=== PATIENT | female | born 1995 | race Caucasian/White ===

== ENCOUNTER 2017-07-30 11:22 | Emergency (ER) | payer MEDICAID, OTHER ==
[~2017-07-30 11:22] MED LIST: CIPR500T4 PO; CLON-352 PO; CONC18TA OR; FLUO-1 PO; FLUO20SO3 PO; METH18 PO; PROZ20CA11 PO; TYLE3 PO; Z.0.BCPILL PO
[2017-07-30] MEDS ORDERED: ZITHTAB PO (12:43)
--- NOTE | 2017-07-30 12:43 | PD ---
HPI Chief Complaint Patient complains of abdominal cramping developed after the onset of upper respiratory sinus congestion has been going on for 2 weeks Date Seen: Jul 30, 2017 Time Seen: 12:35 Travel History International Travel<30 Days: No Contact w/Intl Traveler<30Days: No Known Affected Area: No History of Present Illness HPI Patient is 22-year-old white female at 18 weeks goes to [facility] for care and presents complaining of abdominal pain for the last couple of days and a sinus congestion infection for the last 2 weeks. She denies leakage of fluid or vaginal bleeding. Denies urinary symptoms. heart tones in 140s. Patient is taking Tylenol for pain but does not use anything for sinus care Weeks Gestation: 18 Para: 0 : 3 Last Menstrual Period: Jul 30, 2017 Miscarriage: 2 History Obstetric History Obstetric History 2 early losses Social History Alcohol Use: No Tobacco Use: No Substance Abuse: No Allergies-Medications (Allergen,Severity, Reaction): Coded Allergies: amoxicillin (Unverified Allergy, Severe, HIVES THROAT CLOSES UP RASH, 12/27) banana (Verified Allergy, Severe, vomiting, 07/30/17) clavulanic acid (Unverified Allergy, Severe, HIVES THROAT CLOSES UP RASH, 12/27/16) milk (Unverified Allergy, Severe, HIVES AND ITCHING, 12/27/16) Home Meds Active Scripts Azithromycin (Zithromax Z-Leoncio) 250 Mg Dspk, 250 MG PO DIRECTED for Infection , #1 DSPK 0 Refills 500 MG (2 tabs) day 1, then 1 tab days 2-5. Prov:Toni Keane II, MD 07/30/17 Acetaminophen/Codeine (Tylenol #3) 300 Mg/30 Mg Tab, 1 TAB PO QIDPRN, #15 FOR PAIN Prov:John TESFAYE M.D. 09/26/12 Ciprofloxacin Hcl (Cipro) 500 Mg Tab, 500 MG PO BID, #14 Prov:John TESFAYE M.D. 09/26/12 Reported Medications Clonidine HCl (Adhd) (Clonidine HCl ER) 0.1 Mg Tab, 0.1 MG PO HS, #30 11/14/12 Fluoxetine HCl (Prozac) 10 Mg Cap, 10 MG PO DAILY, #30 11/14/12 Fluoxetine Hcl (Prozac) 20 Mg Cap, 20 MG PO DAILY, #30 11/14/12 Methylphenidate Hcl (Concerta) 18 Mg Tab, 18 MG OR DAILY@0600, #30 3 of 3 dispense 10/17/12 11/14/12 Methylphenidate Hcl (Concerta) 18 Mg Tab, 18 MG OR DAILY@0600, #30 2 of 3 dispense 09/19/12 11/14/12 Methylphenidate Hcl (Concerta) 18 Mg Tab, 18 MG OR DAILY@0600, #30 1 of 3 dispense 08/22/12 11/14/12 Miscellaneous ( Control Pills) Tab, 1 TAB PO DAILY 09/26/12 Methylphenidate (Concerta) 18 Mg Tabcr, 18 MG PO DAILY 09/26/12 Fluoxetine Hcl (Prozac) 20 Mg/5 Ml Liqd, 30 MG PO DAILY 09/26/12 Review of Systems General / Constitutional: No: Fever, Weight Gain, Chills, Other Eyes: No: Diploplia, Blurred Vision, Visual changes, Pain, Photophobia HENT: No: Headaches, Vertigo, Lightheadedness Cardiovascular: No: Irregular Rhythm, Chest Pain or Discomfort, Palpitations, Tachycardia, Syncope, Varicosities, Edema, Cyanosis Respiratory: Other, No: Cough, Short of Breath Gastrointestinal: No: Nausea, Vomiting, Diarrhea Genitourinary: No: Decreased Urinary Output, Oliguria Musculoskeletal: No: Limited ROM, Weakness, Cramping, Edema, Pain Skin: No Rash, No Itching, No Dryness, No Lumps, No Change in Pigmentation, No Change in Nails, No Alopecia, No Lesions Neurologic: No: Weakness, Dizziness, Syncope, Focal Abnormalities, Coordination Problem, Headache, Slurred Speech, Seizures Psychiatric: No: Depression, Suicidal Ideations, Homicidal Ideation Endocrine: No: Heat Intolerance, Cold Intolerance, Polydipsia, Polyuria, Other Physical Exam Narrative GENERAL: Well-nourished, well-developed patient. SKIN: Warm and dry. HEAD: Normocephalic and atraumatic. EYES: No scleral icterus. No injection or drainage. ENT: No nasal drainage noted. Mucous membranes pink. Airway patent. NECK: Supple, trachea midline. No JVD. no lymphadenopathy CARDIOVASCULAR: Regular rate and rhythm without murmurs, gallops, or rubs. RESPIRATORY: Breath sounds equal bilaterally. No accessory muscle use.lungs clear BREASTS: Bilateral exam showed no masses , no retractions, no nipple discharge. ABDOMEN/GI: Abdomen soft, non-tender, bowel sounds present, no rebound, no guarding Gravid to [18-] weeks size Fundal Height: [18-] GENITOURINARY: External Genitalia: intact and normal in appearance BUS glands: [-] Cervix: [post-] Dilatation: [-0] Effacement: [0-] Station: [-3] FHT's: 140s EXTREMITIES: No cyanosis or edema. BACK: Nontender without obvious deformity. No CVA tenderness. NEUROLOGICAL: Awake and alert. Motor and sensory grossly within normal limits. Five out of 5 muscle strength in all muscle groups. Normal speech. Data Data Labs UA neg MDM Interpretation(s) Patient is 22-year-old white female at 18 weeks goes to [facility] for care and is complaining of abdominal pain in the lower abdomen for several days after having 2 weeks of a sinusitis with drainage. No other obstetric problem, heart tones are 1-140s, cervix is closed thick and high. Urinalysis negative., she has taken some Tylenol for the pain. No medicine for the sinus problems Plan Plan to give patient prescription for Z-Leoncio antibiotic, chlorpheniramine to drop to sinus she is to increase her fluids for hydration purposes at home, increase rest, use Tylenol as needed for low-grade fever aches and pains. Follow-up with [facility] Diagnosis Diagnosis: Primary Impression: Abdominal pain during in second trimester Additional Impressions: Sinusitis 18 weeks gestation of Disposition: 01 DISCHARGE HOME Condition: Stable Scripts Chlorpheniramine (Chlor-Trimeton) 4 Mg Tab 4 MG PO Q4H Y for Allergies, #20 TAB 0 Refills Prov: Toni Keane II, MD 07/30/17 Azithromycin (Zithromax Z-Leoncio) 250 Mg Dspk 250 MG PO DIRECTED for Infection, #1 DSPK 0 Refills 500 MG (2 tabs) day 1, then 1 tab days 2-5. Prov: Toni Keane II, MD 07/30/17 Toni Keane II, MD Jul 30, 2017 12:43
[2017-07-30] MEDS ORDERED: CHLO4TAB PO (12:45)
== END 2017-07-30 13:39 | disposition home or self-care (01) ==
LOC: HOBED 11:22
DX: O26.892 Other specified pregnancy related conditions, second trimester (principal); R10.9 Unspecified abdominal pain; O99.512 Diseases of the respiratory system complicating pregnancy, second trimester; J32.9 Chronic sinusitis, unspecified; Z3A.18 18 weeks gestation of pregnancy
CPT/HCPCS: 99283

== ENCOUNTER 2018-01-08 13:13 | Inpatient (IN) ==
[2018-01-08] MEDS ORDERED: Naloxone Inj 0.4 MG/ML Vial IV.PUSH PRN (14:24)
[2018-01-08] MEDS ORDERED: Sodium Chlor 0.9% Inj 500 ML IV.SIG PRN (14:24)
[2018-01-08] MEDS ORDERED: fentaNYL Citrate Inj 100 MCG/2 ML Ampul IV.PUSH PRN (14:24)
[2018-01-08] MEDS ORDERED: Oxytocin 30 Units/500ml Premix 30 UNITS/500 ML BAG IV.SIG ONE (14:24)
[2018-01-08] MEDS ORDERED: Sod Chloride 0.9% Inj 1,000 ML IV.CONT PRN (14:24)
[2018-01-08] MEDS ORDERED: Citric Acid/Sodium Citrate Liq 30 ML UDC PO SCH (14:30)
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
[2018-01-08 15:06] LABS: Baso % (Auto) 0.7 % (0.0-2.0); Eos % (Auto) 0.6 % (0.0-4.0); Hematocrit 38.1 % (35.0-46.0); Hemoglobin 12.8 gm/dL (11.6-15.3); Lymph # (Auto) 1.8 th/mm3 (1.0-4.8); Lymph % (Auto) 24.8 % (9.0-44.0); Mean Corpuscular HGB Conc 33.7 % (32.0-36.0); Mean Corpuscular Hemoglobin 30.3 pg (27.0-34.0); Mean Corpuscular Volume 89.9 fL (80.0-100.0); Mean Platelet Volume 10.8 fL (7.0-11.0); Mono # (Auto) 0.8 th/mm3 (0.0-0.9); Neut # (Auto) 4.6 th/mm3 (1.8-7.7); Neut % (Auto) 62.9 % (16.0-70.0); Platelet Count 163 th/mm3 (150-450); Red Blood Count 4.24 mil/mm3 (4.00-5.30); Red Cell Distribution Width 13.9 % (11.6-17.2); White Blood Count 7.3 th/mm3 (4.0-11.0)
[2018-01-08 15:32] LABS: Bacteria,Urine Rare /hpf; Bilirubin,Urine Negative (Negative); Calcium Oxalate Crystals,Urine Occasional /hpf; Clarity,Urine Cloudy (Clear); Color,Urine Yellow (Yellw/Straw); Glucose,Urine (UA) Negative (Negative); Leukocyte Esterase,Urine Negative (Negative); Mucus,Urine Few /lpf (Occasional); Nitrite,Urine Negative (Negative); Specific Gravity,Urine 1.019 (1.002-1.035); Squamous Epithelial Cell,Urine 15 /hpf (0-5)
[2018-01-08 15:36] LABS: Amphetamine Urine With Conf Neg (Neg); Benzodiazepine Urine With Conf Neg (Neg)
[2018-01-09] MEDS: fentaNYL Citrate Inj 100 MCG/2 ML Ampul IV.PUSH PRN ×3 (00:52→03:39)
[2018-01-09] MEDS ORDERED: fentaNYL 2MCG-Bupiv 0.125% Epi 150 ML EPIDURAL ONE (05:08)
[2018-01-09] MEDS ORDERED: Lidocaine PF 1.5% Inj 20 ML Ampule ONE (05:09)
[2018-01-09] MEDS ORDERED: fentaNYL 2MCG-Bupiv 0.125% Epi 150 ML EPIDURAL PRN (05:51)
[2018-01-09] MEDS ORDERED: fentaNYL Citrate Inj 100 MCG/2 ML Ampul EPIDURAL ONE (05:51)
[2018-01-09] MEDS ORDERED: Oxytocin 30 Units/500ml Premix 30 UNITS/500 ML BAG ONE (09:42)
--- NOTE | 2018-01-09 11:58 | P.PN ---
Subjective Interval history: Attending Delivery Note After the patient progressed to complete/complete/0 she commence spontaneous maternal expulsive efforts. The fetus that overall reassuring heart tones throughout. head delivered spontaneously and atraumatically followed by atraumatic and spontaneous delivery of the anterior shoulder and remainder of the . A nuchal cord was noted and the was disengaged from this cord upon delivery. The was placed in the maternal abdomen and became vigorous with stimulation. After 45 second delay, the cord was doubly clamped and cut and cord blood obtained for the nursery. The placenta delivered spontaneously and appeared to be intact. A first-degree vaginal laceration was noted which was repaired with 2-0 chromic with excellent hemostasis and cosmesis noted. Apgars 8/9. Both and mother are doing well. Physical Exam Vital signs: Vital Signs 01/08/18 13:27 01/08/18 14:45 01/08/18 15:15 Temperature 98.2 F Pulse Rate 115 H 80 Respiratory Rate 18 17 18 Blood Pressure 112/77 123/71 01/08/18 15:43 01/08/18 16:45 01/08/18 18:15 Temperature 98.2 F Pulse Rate Respiratory Rate 17 18 17 Blood Pressure 01/08/18 19:00 01/08/18 19:08 01/08/18 19:09 Temperature Pulse Rate 18 L 67 Respiratory Rate 18 Blood Pressure 116/61 01/08/18 19:32 01/09/18 00:05 01/09/18 02:25 Temperature 98.2 F 98.7 F Pulse Rate 54 L 80 Respiratory Rate 18 18 Blood Pressure 127/69 126/86 01/09/18 05:05 01/09/18 05:06 01/09/18 05:15 Temperature 97.6 F Pulse Rate 72 74 Respiratory Rate 18 Blood Pressure 135/93 H 01/09/18 05:20 01/09/18 05:25 01/09/18 05:30 Temperature Pulse Rate 81 59 L 62 Respiratory Rate Blood Pressure 125/103 H 01/09/18 05:31 01/09/18 05:35 01/09/18 05:40 Temperature Pulse Rate 75 73 84 Respiratory Rate Blood Pressure 125/78 125/82 123/75 01/09/18 05:45 01/09/18 05:50 01/09/18 05:55 Temperature Pulse Rate 85 81 103 H Respiratory Rate Blood Pressure 125/70 119/77 111/62 01/09/18 06:05 01/09/18 06:10 01/09/18 06:15 Temperature Pulse Rate 71 73 77 Respiratory Rate Blood Pressure 116/71 01/09/18 06:20 01/09/18 06:25 01/09/18 06:30 Temperature Pulse Rate 70 68 72 Respiratory Rate Blood Pressure 117/76 01/09/18 06:35 01/09/18 06:40 01/09/18 06:50 Temperature Pulse Rate 75 81 76 Respiratory Rate Blood Pressure 115/81 01/09/18 06:55 01/09/18 07:00 01/09/18 07:05 Temperature Pulse Rate 74 73 71 Respiratory Rate Blood Pressure 104/72 01/09/18 07:30 01/09/18 07:31 01/09/18 07:45 Temperature 97.3 F L Pulse Rate 68 74 57 L Respiratory Rate 18 Blood Pressure 119/79 89/48 L 101/67 01/09/18 08:00 01/09/18 08:20 01/09/18 08:40 Temperature Pulse Rate 61 56 L 62 Respiratory Rate Blood Pressure 109/58 L 106/52 L 110/57 L 01/09/18 08:55 01/09/18 09:15 01/09/18 09:35 Temperature Pulse Rate 122 H 93 H 82 Respiratory Rate Blood Pressure 114/75 102/41 L 105/79 01/09/18 10:00 01/09/18 10:16 01/09/18 10:31 Temperature Pulse Rate 67 65 89 Respiratory Rate Blood Pressure 121/106 H 127/65 124/61 01/09/18 10:46 01/09/18 11:31 Temperature Pulse Rate 69 73 Respiratory Rate Blood Pressure 126/65 144/79 H Intake & Output 01/08/18 01/09/18 01/09/18 18:59 06:59 18:59 Intake Total 1999 Balance 1999 Weight 81.647 kg Intake: IV 1999 LR 1000 mL Inj 1,000 ML @ 125 1999 mls/hr IV.CONT .Q8H [facility] Rx#: [id number] Results - Labs CBC & Chem 7: 01/08/18 14:42 Laboratory Results - last 24 hr 01/08/18 01/08/18 01/08/18 13:28 13:28 14:42 WBC RBC Hgb Hct MCV MCH MCHC RDW Plt Count MPV Neut % (Auto) Lymph % (Auto) [place] % (Auto) Eos % (Auto) Baso % (Auto) Neut # (Auto) Lymph # (Auto) [place] # (Auto) Eos # (Auto) Baso # (Auto) WBC Differential Differential Comment Urine Color Yellow Urine Clarity Cloudy H Urine pH 6.0 Ur Specific [place] 1.019 Urine Protein Negative Urine Glucose (UA) Negative Urine Ketones Trace H Urine Occult Blood Negative Urine Nitrate Negative Urine Bilirubin Negative Urine Urobilinogen Less than 2 Ur Leukocyte Esterase Negative Urine RBC 1 Urine WBC 1 Ur Squamous Epith Cells 15 Calcium Oxalate Crystal Occasional H Urine Bacteria Rare H Urine Mucus Few H Micro UA Comment Culture not ind Ur Microscopic Review Not Reportable Urine Culture Comments Culture not ind Urine Opiates Screen Neg Ur Barbiturates Screen Neg Ur Amphetamine Screen Neg U Benzodiazepines Scrn Neg Urine Cocaine Screen Neg U Cannabinoids Screen Neg Blood Type B Negative Blood Type Recheck Required Antibody Screen Negative 01/08/18 14:42 WBC 7.3 RBC 4.24 Hgb 12.8 Hct 38.1 MCV 89.9 MCH 30.3 MCHC 33.7 RDW 13.9 Plt Count 163 MPV 10.8 Neut % (Auto) 62.9 Lymph % (Auto) 24.8 [place] % (Auto) 11.0 H Eos % (Auto) 0.6 Baso % (Auto) 0.7 Neut # (Auto) 4.6 Lymph # (Auto) 1.8 [place] # (Auto) 0.8 Eos # (Auto) 0.0 Baso # (Auto) 0.0 WBC Differential . Differential Comment Auto diff final Urine Color Urine Clarity Urine pH Ur Specific [place] Urine Protein Urine Glucose (UA) Urine Ketones Urine Occult Blood Urine Nitrate Urine Bilirubin Urine Urobilinogen Ur Leukocyte Esterase Urine RBC Urine WBC Ur Squamous Epith Cells Calcium Oxalate Crystal Urine Bacteria Urine Mucus Micro UA Comment Ur Microscopic Review Urine Culture Comments Urine Opiates Screen Ur Barbiturates Screen Ur Amphetamine Screen U Benzodiazepines Scrn Urine Cocaine Screen U Cannabinoids Screen Blood Type Blood Type Recheck Antibody Screen Assessment and Plan - Assessment (1) 41 weeks gestation of Code(s): Z3A.41 - 41 weeks gestation of Status: Acute (2) No leakage of amniotic fluid into vagina Code(s): Z03.71 - Encounter for suspected problem with amniotic cavity and membrane ruled out Status: Acute
[2018-01-09] MEDS ORDERED: Oxytocin 30 Units/500ml Premix 30 UNITS/500 ML BAG IV.CONT PRN (12:00)
[2018-01-09] MEDS ORDERED: Bisacodyl 10 MG Supp RECTAL PRN (12:00)
[2018-01-09] MEDS ORDERED: Witch Hazel 50%/Glyderin 12.5% 40 Pad Jar RECTAL PRN (12:00)
[2018-01-09] MEDS ORDERED: Benzocaine 20% Top Spray 60 ML Can TOPICAL PRN (12:00)
[2018-01-09] MEDS ORDERED: Zolpidem Tartrate 5 MG Tablet PO PRN (12:00)
[2018-01-09] MEDS ORDERED: Naloxone Inj 0.4 MG/ML Vial IV.PUSH PRN (12:00)
[2018-01-09] MEDS ORDERED: Acetaminophen 325 MG Tablet PO PRN (12:00)
--- NOTE | 2018-01-09 12:02 | P.OBDELI ---
Weeks Gestation: 41 Medical Induction of Labor: Yes Artificial Rupture of Membrane: Yes Artificial ROM Date: 01/09/18 Artificial ROM Time: 08:49 Anesthesia: Epidural Episiotomy: none Vaginal Delivery: Spontaneous Presentation: Occiput anterior Nuchal Cord: x1 Delayed Cord Clamping (45 sec): Yes Placenta: Spontaneous delivery, Intact, 3 vessel cord Laceration: Vaginal, 1 deg Repair: Chromic running Estimated blood loss (mL): 100 Infant: Female Infant Female A Delivery Date: 01/09/18 Delivery Time: 11:36 Weight: 3.275 kg score (1 min): 8 score (5 min): 9
[2018-01-09] MEDS ORDERED: Oxytocin 30 Units/500ml Premix 30 UNITS/500 ML BAG IV.SIG PRN (15:34)
[2018-01-09] MEDS ORDERED: Diphtheria/Tetanus/Pertussis Vaccine Inj 0.5 ML Syringe IM ONE (16:00)
[2018-01-09] MEDS ORDERED: Measles/Mumps/Rubella Vaccine Inj 0.5 ML Vial SQ ONE (16:00)
[2018-01-09] MEDS: Senna/Docusate Sodium 8.6/50 MG Tablet PO SCH (22:03)
[2018-01-10 03:17] VITALS: O2SAT 98
[2018-01-10 06:34] VITALS: RESP 18
[2018-01-10] MEDS: Senna/Docusate Sodium 8.6/50 MG Tablet PO SCH ×2 (09:35→23:59)
--- NOTE | 2018-01-10 09:42 | P.PNOB ---
Subjective Interval history: Patient is a 22-year-old G 3 p 1 delivered at 41 weeks and 2 days. Patient is day 1 after uncomplicated induced vaginal delivery. Patient had no acute overnight events. Patient's pain is well-controlled. Patient reports eating and drinking without nausea or vomiting. She reports continued vaginal bleeding particularly when she stands but is beginning to lessen and is ambulating well. Patient is urinating but has not yet had a BM. Patient denies any chest pain, shortness of breath, nausea, vomiting, fever, chills, calf pain, or new lower extremity swelling. Objective Vital Signs/I&O: Vital Signs 01/09/18 09:35 01/09/18 10:00 01/09/18 10:16 Temperature Pulse Rate 82 67 65 Respiratory Rate Blood Pressure 105/79 121/106 H 127/65 Pulse Oximetry 01/09/18 10:31 01/09/18 10:46 01/09/18 11:00 Temperature Pulse Rate 89 69 137 H Respiratory Rate Blood Pressure 124/61 126/65 114/100 H Pulse Oximetry 01/09/18 11:31 01/09/18 12:00 01/09/18 12:01 Temperature 98.7 F Pulse Rate 73 46 L 112 H Respiratory Rate 18 Blood Pressure 144/79 H 158/101 H 130/105 H Pulse Oximetry 01/09/18 12:14 01/09/18 12:15 01/09/18 12:30 Temperature Pulse Rate 88 72 80 Respiratory Rate 18 18 Blood Pressure 101/70 125/83 124/107 H Pulse Oximetry 01/09/18 12:45 01/09/18 12:46 01/09/18 13:00 Temperature Pulse Rate 75 70 Respiratory Rate 18 Blood Pressure 117/72 116/67 Pulse Oximetry 01/09/18 13:25 01/09/18 15:50 01/09/18 20:00 Temperature 98.1 F 98.2 F Pulse Rate 63 88 69 Respiratory Rate 18 18 18 Blood Pressure 119/73 141/87 H 112/77 Pulse Oximetry 01/09/18 23:57 01/10/18 02:57 01/10/18 03:15 Temperature 98.1 F 97.7 F Pulse Rate 71 73 Respiratory Rate 18 20 20 Blood Pressure 134/96 H 118/84 Pulse Oximetry 98 01/10/18 03:23 01/10/18 06:33 01/10/18 08:00 Temperature 97.7 F 97.6 F Pulse Rate 73 69 Respiratory Rate 20 18 18 Blood Pressure 118/84 139/82 Pulse Oximetry Intake & Output 01/09/18 01/10/18 01/10/18 18:59 06:59 18:59 Intake Total 0 / 0 Balance 0 / 0 Intake: Intake (Blood Product) Amt 0 / 0 Rho(D) Immune Globulin Unit 0 / 0 [id number] Result Diagrams: 01/08/18 14:42 Objective Remarks: GENERAL: Well-nourished, well-developed patient. CARDIOVASCULAR: Regular rate and rhythm without murmurs, gallops, or rubs. RESPIRATORY: Breath sounds equal bilaterally. No accessory muscle use. ABDOMEN/GI: Abdomen soft, non-tender. Fundus: Firm, non-tender at just above the umbilicus. GENITOURINARY: Light to moderate bleeding. EXTREMITIES: No cyanosis or edema, non-tender, without signs of DVT. Medications and IVs: Active Medications Acetaminophen (Tylenol) 650 mg PO Q4H PRN PRN Reason: PAIN SCALE 1 TO 2 Al Hydroxide/Mg Hydroxide (Milk Of [place] Liq) 30 ml PO Q12H PRN PRN Reason: Mild Constipation Benzocaine (Americaine 20% Top [place]) 1 spray TOPICAL Q4H PRN PRN Reason: For Perineum Discomfort Last Admin: 01/09/18 14:21 Dose: 1 spray Bisacodyl (Dulcolax Supp) 10 mg RECTAL DAILY PRN PRN Reason: SEVERE CONSITIPATION Fentanyl/Bupivacaine/Sodium Chlor (Fentanyl 2 Mcg-Bupiv 0.125% Epi) 150 mls @ 10 mls/hr EPIDURAL PRN PRN PRN Reason: for Labor Pain Last Admin: 01/09/18 06:15 Dose: 10 mls/hr Oxytocin (Pitocin 30 Units/Ns 500 Ml Premix) 30 units in 500 mls @ 100 mls/hr IV.CONT UNSCH PRN PRN Reason: Heavy bleeding Ibuprofen (Motrin) 800 mg PO Q8H PRN PRN Reason: For Cramping Last Admin: 01/10/18 05:57 Dose: 800 mg Lactulose (Lactulose Liq) 30 ml PO DAILY PRN PRN Reason: SEVERE CONSITIPATION Naloxone HCl (Narcan Inj) 0.1 mg IV.PUSH Q2M PRN PRN Reason: for opiate reversal Ondansetron HCl (Zofran Odt) 4 mg PO Q6H PRN PRN Reason: NAUSEA OR VOMITING Senna/Docusate Sodium (Anny-Colace) 1 tab PO BID [facility] Last Admin: 01/09/18 22:03 Dose: Not Given Sennosides (Senokot) 17.2 mg PO Q12H PRN PRN Reason: Moderate Constipation Sodium Chloride (Ns Flush) 2 ml IV.FLUSH BID [facility] Last Admin: 01/09/18 23:58 Dose: 2 ml Sodium Chloride (Ns Flush) 2 ml IV.FLUSH PRN PRN PRN Reason: FLUSH AFTER USING IV ACCESS Witch May/Glycerin (Tucks Pads) 1 applicatio RECTAL QID PRN PRN Reason: HEMORRHOIDS Last Admin: 01/09/18 14:20 Dose: 1 applicatio Zolpidem Tartrate (Ambien) 5 mg PO HS PRN PRN Reason: SLEEP Assessment and Plan - Plan Patient is a 22-year-old G 3 p 1 delivered at 41 weeks and 2 days. Patient is day 1 after uncomplicated induced vaginal delivery. Patient comfortable and doing well. Patient denied any contraceptives at this time and prefers to continue using OCPs. Patient desires to breast-feed. -Continue routine care -Motrin when necessary for pain -Encourage OOB -Pelvic rest for 6 weeks will need follow-up appointment at that time. -Contraception: OCPs after discharge by PCP -Anticipate discharge tomorrow - Attending Attestation The patient was seen and examined by me and I participated in all [place] decision making. Continue routine care. Anticipate discharge home tomorrow. SMS
[2018-01-11] MEDS: Senna/Docusate Sodium 8.6/50 MG Tablet PO SCH (08:31)
--- NOTE | 2018-01-11 08:56 | P.PNOB ---
Subjective Interval history: deric is a 22-year-old G 3 p 1 delivered at 41 weeks and 2 days. Patient is day 2 after uncomplicated induced vaginal delivery. Patient had no acute overnight events. Patient's pain is well-controlled. Patient reports eating and drinking without nausea or vomiting. Patient reports vaginal bleeding becoming less and less. Patient is urinating and has had BM this morning. Patient only mentioned some mild lower abdominal cramping during breast-feeding. Patient denies any chest pain, shortness of breath, nausea, vomiting, fever, chills, calf pain, or new lower extremity swelling. Objective Vital Signs/I&O: Vital Signs 01/10/18 20:00 Temperature 98.0 F Pulse Rate 72 Respiratory Rate 18 Blood Pressure 121/72 Result Diagrams: 01/08/18 14:42 Objective Remarks: GENERAL: Well-nourished, well-developed patient. CARDIOVASCULAR: Regular rate and rhythm without murmurs, gallops, or rubs. RESPIRATORY: Breath sounds equal bilaterally. No accessory muscle use. ABDOMEN/GI: Abdomen soft, non-tender. Fundus: Firm, non-tender at just above umbilicus. GENITOURINARY: Light to moderate bleeding. EXTREMITIES: No cyanosis or edema, non-tender, without signs of DVT. Medications and IVs: Active Medications Acetaminophen (Tylenol) 650 mg PO Q4H PRN PRN Reason: PAIN SCALE 1 TO 2 Al Hydroxide/Mg Hydroxide (Milk Of [place] Liq) 30 ml PO Q12H PRN PRN Reason: Mild Constipation Benzocaine (Americaine 20% Top [place]) 1 spray TOPICAL Q4H PRN PRN Reason: For Perineum Discomfort Last Admin: 01/09/18 14:21 Dose: 1 spray Bisacodyl (Dulcolax Supp) 10 mg RECTAL DAILY PRN PRN Reason: SEVERE CONSITIPATION Fentanyl/Bupivacaine/Sodium Chlor (Fentanyl 2 Mcg-Bupiv 0.125% Epi) 150 mls @ 10 mls/hr EPIDURAL PRN PRN PRN Reason: for Labor Pain Last Admin: 01/09/18 06:15 Dose: 10 mls/hr Oxytocin (Pitocin 30 Units/Ns 500 Ml Premix) 30 units in 500 mls @ 100 mls/hr IV.CONT UNSCH PRN PRN Reason: Heavy bleeding Ibuprofen (Motrin) 800 mg PO Q8H PRN PRN Reason: For Cramping Last Admin: 01/11/18 08:31 Dose: 800 mg Lactulose (Lactulose Liq) 30 ml PO DAILY PRN PRN Reason: SEVERE CONSITIPATION Naloxone HCl (Narcan Inj) 0.1 mg IV.PUSH Q2M PRN PRN Reason: for opiate reversal Ondansetron HCl (Zofran Odt) 4 mg PO Q6H PRN PRN Reason: NAUSEA OR VOMITING Senna/Docusate Sodium (Anny-Colace) 1 tab PO BID [facility] Last Admin: 01/11/18 08:31 Dose: 1 tab Sennosides (Senokot) 17.2 mg PO Q12H PRN PRN Reason: Moderate Constipation Sodium Chloride (Ns Flush) 2 ml IV.FLUSH BID [facility] Last Admin: 01/10/18 23:59 Dose: Not Given Sodium Chloride (Ns Flush) 2 ml IV.FLUSH PRN PRN PRN Reason: FLUSH AFTER USING IV ACCESS Witch May/Glycerin (Tucks Pads) 1 applicatio RECTAL QID PRN PRN Reason: HEMORRHOIDS Last Admin: 01/09/18 14:20 Dose: 1 applicatio Zolpidem Tartrate (Ambien) 5 mg PO HS PRN PRN Reason: SLEEP Assessment and Plan - Plan Patient is a 22-year-old G 3 p 1 delivered at 41 weeks and 2 days. Patient is day 2 after uncomplicated induced vaginal delivery. Patient comfortable and doing well. Patient desires to go home and baby doing well. Patient will be discharged today. -Discharge home -Motrin when necessary for pain -Pelvic rest for 6 weeks will need follow-up appointment at that time. -Contraception: OCPs after discharge by PCP -Anticipate discharge today
[2018-01-11 09:18] VITALS: TEMP 97.8
[2018-01-11 09:21] VITALS: BP 117/79; PULSE 76
== END 2018-01-11 14:48 | disposition home or self-care (01) ==
LOC: HOBED 13:13 → H2E 14:15 → H1EA 01-09 16:32
PROVIDERS: ADMIT Obstetrics & Gynecology Maternal & Fetal Medicine; ATTEND Obstetrics & Gynecology Maternal & Fetal Medicine